=== PATIENT | male | born 1940 | race African-American/Black ===

== ENCOUNTER 2022-12-13 11:24 | Emergency (ER) | payer MEDICARE, OTHER ==
[~2022-12-13] VITALS: Ht 177.8 cm; Wt 77.0 kg
[2022-12-13 11:32] VITALS: BP 130/68
== END 2022-12-13 11:50 | disposition left against medical advice (07) ==
LOC: ER 11:26
DX: T21.10XA Burn of first degree of trunk, unspecified site, initial encounter (principal); E11.9 Type 2 diabetes mellitus without complications; Z86.73 Personal history of transient ischemic attack (TIA), and cerebral infarction without residual deficits; X08.8XXA Exposure to other specified smoke, fire and flames, initial encounter; Y93.89 Activity, other specified; Y92.89 Other specified places as the place of occurrence of the external cause; Y99.8 Other external cause status
CPT/HCPCS: 99283